=== PATIENT | male | born 1965 | race Caucasian/White ===

== ENCOUNTER 2023-07-30 12:12 | Emergency (ER) | payer SELFPAY ==
--- NOTE | ~2023-07-30 | XR_ITS ---
EXAMINATION: XR finger 2nd LT min 2V DATE: 07/30/2023 12:32 INDICATION: Laceration from a crossbow at the second digit of the left hand TECHNIQUE: Dorsal palmar, lateral and 2 oblique views of the left second digit were obtained COMPARISON: None FINDINGS: Small minimally displaced fracture at the radial base of the left second distal phalanx which involve s a minimal portion of the proximal articular surface. There is an additional minimally displaced fra cture extending obliquely across the distal tuft. There is a small bone fragment projecting over the dorsal/radial aspect of the base of the distal phalanx which is of indeterminate origin most likely a rising and proximally displaced from the tuft. Associated soft tissue laceration with soft tissue gas about the radial and dorsal aspects of the mid and distal phalanges. 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 IMPRESSION: 1. Likely open/compound fractures at the base and tuft of the left second distal phalanx with at leas t one fragment likely proximally displaced from the tuft.. Reviewed, dictated and finalized at location A. WELLNESS COORDINATOR IMPRESSION: 1. Likely open/compound fractures at the base and tuft of the left second dista l phalanx with at least one fragment likely proximally displaced from the tuft. .
[2023-07-30 12:15] VITALS: BP 228/130; PULSE 89; RESP 18; TEMP 36.4; O2SAT 96
[2023-07-30] MEDS: TETANUS,DIPHTHERIA,AC PERTUSSIS ADULT (0.5 ML) BOOSTRIX IM (12:38)
--- NOTE | 2023-07-30 12:46 | PC.NURSE ---
Lac tray, sutures, saline bottle and flush placed on procedure table at bedside.
--- NOTE | 2023-07-30 13:40 | ED.GENADULT ---
HPI - General Adult General Chief complaint: Wound/Laceration Stated complaint: FINGER VS CROSSBOW Time Seen by Provider: 07/30/23 12:18 Source: patient Mode of arrival: ambulatory Limitations: no limitations History of Present Illness HPI narrative: This is a 58-year-old male who presents to the ED with chief complaint of a left index finger laceration injury that occurred just prior to arrival. Patient states that he was loading up his crossbow that he just got for [employer] and discharge the bolt into his finger. He states that it scraped the and there is no further site of injury. Not on blood thinners. Denies numbness or weakness Related Data Allergies Allergy/AdvReac Type Severity Reaction Status Date / Time No Known Allergies Allergy Mild Verified 07/23/09 14:15 Review of Systems Review of Systems: All systems as dictated in HPI Exam Narrative: GENERAL: Well-appearing, well-nourished, and in no acute distress. HEAD: Normocephalic, atraumatic. EYES: PERRLA and EOMI. ENT: Nares clear, no rhinorrhea or epistaxis. Mucous membranes moist. Oropharynx without tonsillar hypertrophy exudate or other lesions. NECK: Supple. No adenopathy or masses. CHEST: No respiratory distress. Clear to auscultation. No wheezes rales or rhonchi HEART: Regular rate and rhythm. No murmur heard. Normal peripheral pulses. ABDOMEN: Soft, nontender, nondistended, normal active bowel sounds. MSK: Normal range of motion. No edema. SKIN: There is a 3 cm laceration to the for the dorsum /lateral index finger. Tenderness distally. Neurovascularly intact distally. Bleeding controlled NEURO: Alert and oriented x3. No focal deficits. PSYCH: Normal mood and affect. Course Vital Signs Vital signs: Vital Signs Temperature 97.6 F 07/30/23 12:15 Pulse Rate 89 07/30/23 12:15 Respiratory Rate 18 07/30/23 12:15 Blood Pressure 228/130 H 07/30/23 12:15 Pulse Oximetry 96 07/30/23 12:15 Temperature 97.6 F 07/30/23 12:15 Pulse Rate 75 07/30/23 15:18 Respiratory Rate 20 07/30/23 15:18 Blood Pressure 180/100 H 07/30/23 15:18 Pulse Oximetry 99 07/30/23 15:18 Procedures Laceration Laceration 1: Date: 07/30/23 Time: 14:15 Side (If applicable): left Size (cm): 3 Description: linear and irregular Depth: simple, single layer Local Anesthetic: lidocaine 1% Amount of anesthesia used (mL): 2 Pre-repair: wound explored, irrigated extensively and deep structures intact ====== Skin Level ====== Skin layer closed with: nylon Size (cm): 5-0 Number of sutures: 6 Technique: simple, interrupted ====== Subcutaneous Layer ====== ====== Muscle Layer ====== ====== Tendon Layer ====== Dressing: nonadherent pad. Gauze dressing. Finger splint. Medical Decision Making MDM Narrative Medical decision making narrative: This is a 58-year-old male who presents to the ED with chief complaint of a left index finger laceration after discharging a crossbow accidentally into his own finger. show initial elevated blood pressure, he does appear to be in pain and anxious. Vitals are otherwise normal. Finger XR: 1. Likely open/compound fractures at the base and tuft of the left second distal phalanx with at least one fragment likely proximally displaced from the tuft.. . Wound was well cleansed and irrigated here in the department. The laceration was closed with loose approximation. He was given IV Ancef. Fingers but placed. Instructed to follow up with plastics. Prescription for antibiotics given. Pt will be discharged in stable condition. Return precautions given and supportive measures discussed. Pt is understanding and agreeable with plan for discharge and follow-up with PCP. Vital Signs Vital Signs: Vital Signs Temperature 97.6 F 07/30/23 12:15 Pulse Rate 89 07/30/23 12:15 Respirat
[2023-07-30] MEDS: LIDOCAINE HCL 1% LOCAL INJ 10 ML VIAL INFILTRATE (13:49)
[2023-07-30] MEDS: ceFAZolin 1 GM/NS 50 ML 1 GM/50 ML BAG IVPB (14:39)
[2023-07-30 15:18] VITALS: BP 180/100; PULSE 75; RESP 20; O2SAT 99
== END 2023-07-30 15:19 | disposition home or self-care (01) ==
PROVIDERS: Emergency Provider Physician Assistant
DX: S62.631B Displaced fracture of distal phalanx of left index finger, initial encounter for open fracture (principal); W20.8XXA Other cause of strike by thrown, projected or falling object, initial encounter; Z23 Encounter for immunization
CPT/HCPCS: 73140; 90471; 90715; 96365; 99284; J0690

== ENCOUNTER 2023-08-19 10:40 | Outpatient (CLI) | payer SELFPAY ==
--- NOTE | ~2023-08-19 | XR_ITS ---
EXAMINATION: XR hand LT min 3V DATE: 08/19/2023 12:05 INDICATION: Fracture of left second distal phalanx. TECHNIQUE: 4 views of left hand were obtained. COMPARISON: Left hand second digit radiographs 07/30/2023 FINDINGS: Bone alignment is normal. There is a comminuted fracture of second distal phalanx. The main distal fracture fragment demonstrates 37 degrees dorsal angulation. There are erosions of second dis heriberto phalanx and head of second middle phalanx. There are dystrophic calcifications around second dist al phalanx and head of second middle phalanx. There is mild osteoarthritis of many of the metacarpoph alangeal joints and interphalangeal joints. IMPRESSION: 1. Comminuted fracture of second distal phalanx. 2. Erosions of second distal phalanx and head of second middle phalanx suspicious for osteomyelitis. Reviewed, dictated and finalized at location E. EL INSPECTOR IMPRESSION: 1. Comminuted fracture of second distal phalanx. 2. Erosions of second distal phalanx and head of second middle phalanx suspicio us for osteomyelitis.
== END 2023-08-19 10:41 | disposition home or self-care (01) ==
PROVIDERS: Visit Provider Physician Assistant Surgical
DX: S62.631D Displaced fracture of distal phalanx of left index finger, subsequent encounter for fracture with routine healing (principal); X58.XXXD Exposure to other specified factors, subsequent encounter
CPT/HCPCS: 73130